=== PATIENT | male | born 1990 | race Two or more races ===

== ENCOUNTER 2024-09-25 20:34 | Emergency (ER) | payer MEDICAID, OTHER ==
[~2024-09-25] VITALS: Ht 185.4 cm; Wt 120.5 kg
--- NOTE | 2024-09-25 22:17 | DVH ---
XY R ANKLE 3 VIEW, INDICATION: RIGHT ANKLE SWELLING/BRUISING TECHNICAL DATA:Frontal , oblique and lateral views were obtained of the right ankle. COMPARISON: None Findings/ IMPRESSION: No acute fracture or dislocation. Diffuse soft tissue edema. Small ankle joint effusion. There is a 1 cm osseous protuberance adjacent to the medial malleolus of unknown clinical significance.
--- NOTE | 2024-09-26 00:16 | ED.PDOC ---
Back pain HPI HPI Comments This is a 34-year-old male presents to the ED chief complaint right ankle pain patient states he was climbing a ladder fell down about 5 steps landed awkwardly on the ground and twisted his right ankle. Complaining pain sharp pressure type pain nonradiating/ states the injury happened on 09/24. No improvement since then has been using [id number] relief with some relief. Denies numbness or weakness or any other known injury. Chief Complaint: Lower Extremity Time Seen by MD: 20:51 Reviewed Notes: Nurses Notes, Medications, Allergies Allergies: Coded Allergies: NO KNOWN ALLERGIES (Unverified , 09/25/24) Information Source: Patient Mode of Arrival: Ambulatory Past Medical History PAST MEDICAL HISTORY: Denies Surgical History: Denies all surgeries Family History Family History: Reviewed,noncontributory to illness Social History Smoker: Non-Smoker Alcohol: Denies ETOH Use Drugs: Denies Drug Use Constitutional: denies: chills, diaphoresis, fatigue, fever, malaise, sweats, weakness, others EENTM: denies: blurred vision, double vision, ear bleeding, ear discharge, ear drainage, ear pain, ear ringing, eye pain, eye redness, hearing loss, mouth pain, mouth swelling, nasal discharge, nose bleeding, nose congestion, nose pain, photophobia, tearing, throat pain, throat swelling, voice changes, others Respiratory: denies: cough, hemoptysis, orthopnea, SOB at rest, shortness of breath, SOB with excertion, stridor, wheezing, others Cardiovascular: denies: chest pain, dizzy spells, diaphoresis, Dyspnea on exertion, edema, irregular heart beat, left arm pain, lightheadedness, palpitations, PND, syncope, others Gastrointestinal: denies: abdomen distended, abdominal pain, blood streaked bowels, constipated, diarrhea, dysphagia, difficulty swallowing, hematemesis, melena, nausea, poor appetite, poor fluid intake, rectal bleeding, rectal pain, vomiting, others Genitourinary: denies: burning, dysuria, flank pain, frequency, hematuria, incontinence, penile discharge, penile sore, pain, testicle pain, testicle swelling, urgency, others Neurological: denies: dizziness, fainting, headache, left sided numbness, left sided weakness, numbness, paresthesia, pre-existing deficit, right sided numbness, right sided weakness, seizure, speech problems, tingling, tremors, weakness, others Musculoskeletal: reports: joint swelling (Ankle right); denies: back pain, gout , joint pain, muscle pain, muscle stiffness, neck pain, others Integumetry: denies: bruises, change in color, change in hair/nails, dryness, laceration, lesions, lumps, rash, wounds, others Allergic/Immunocompromised: denies: Difficulty Healing, Frequent Infections, Hives, Itching, others Hematologic/Lymphatic: denies: anemia, blood clots, easy bleeding, easy bruising, swollen glands, others Endocrine: denies: excessive hunger, excessive sweating, excessive thirst, excessive urination, flushing, intolerance to cold, intolerance to heat, unexplained weight gain, unexplained weight loss, others Psychiatric: denies: anxiety, bipolar disorder, depression, hopeless, panic disorder, schizophrenia, sleepless, suicidal, others Physical Exam General Appearance: No Apparent Distress, Normal HEENT: Pharynx Normal Neck: Full Range of Motion, Non-Tender Respiratory: Lungs Clear, No Respiratory Distress, Normal Breath Sounds Cardiovascular: No Murmur, Normal Peripheral Pulses, Regular Rate/Rhythm Breast Exam: Deferred Gastrointestinal: Non Tender, Soft Genitalia: Deferred Pelvic: Deferred Rectal: Deferred Extremities: Normal capillary refill, Normal inspection, Normal range of motion, Non-tender, No pedal edema Musculoskeletal : Location: Right Extremity Location: Ankle (Moderate tenderness, edema, and ecchymosis medial aspect range of motion with mild discomfort strength sensory and motion intact positive pedal pulse) Apperance: Normal Neurologic: Alert, 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 Was a procedure done?: No Back Pain Differential Dx Differential Diagnosis: Fracture, Musculoskeletal Pain X-Ray, Labs, Meds, VS Vital Signs Date Time Temp Pulse Resp B/P (MAP) Pulse Ox O2 Delivery O2 Flow Rate FiO2 09/26/24 00:30 97 19 99 Room Air 09/26/24 00:30 98.8 97 19 138/77 (97) 99 98.8 1/1/25 21:00 98.8 105 18 130/74 (92) 95 X-Ray, Labs, Meds, VS Comment X-ray shows no acute fractures or osseous lesions. Patient placed in crutches and Macario wrap. Advised on rice. Advil as needed for pain and swelling per labeled dosing instructions. Advised patient to follow up with his PCP within 2-3 days if no improvement consider further imaging such as MRI. Return precau tions given patient agrees with discharge care plan Time of 1ST Reevaluation: 00:16 Reevaluation 1ST: Improved Patient Education/Counseling: Diagnosis, Treatment, Prognosis, Need For Follow Up Family Education/Counseling: No Family Present Departure 1 Departure Time of Disposition: 00:16 Impression: Primary Impression: Right ankle sprain Qualified Codes: S93.401A - Sprain of unspecified ligament of right ankle, initial encounter Disposition: [facility] Condition: Stable Discharged With: Self Critical Care Note Critical Care Time?: No Stability Stability form required: SHIRLEY Carter Sep 26, 2024 00:16
[2024-09-26 00:30] VITALS: BP 138/77; PULSE 97; RESP 19; TEMP 98.8; O2SAT 99
== END 2024-09-26 00:38 | disposition home or self-care (01) ==
LOC: ER 20:34
DX: S93.401A Sprain of unspecified ligament of right ankle, initial encounter (principal); X50.1XXA Overexertion from prolonged static or awkward postures, initial encounter; Y93.89 Activity, other specified; Y92.89 Other specified places as the place of occurrence of the external cause; Y99.8 Other external cause status
CPT/HCPCS: 73610